=== PATIENT | male | born 1945 | race Caucasian/White ===

== ENCOUNTER 2016-07-21 12:43 | Emergency (ER) | payer MEDICARE, BC ==
[2016-07-21] MEDS ORDERED: TETANUS,DIPHTHERIA,PERTUSSIS 1 EA SYG IM ONE ×2 (13:14→14:25)
--- NOTE | 2016-07-21 13:30 | ED.PDOC ---
History of Present Illness - General Chief Complaint: Syncope/Near Syncope Stated Complaint: syncopal episode/hand injury Time Seen by Provider: 07/21/16 13:11 Source: patient, family Exam Limitations: no limitations - History of Present Illness Initial Comments: Dani Shen 70 y/o male with history of cad,htn stated that he was fixing the skeet shooter with his daughter then hand accidentally got caught by it sustaining wound laceration right hand and after incident went to sit on the chair felt nauseated and noticed by the family that he passed out not breathing eyes rolled up became pale and cyanotic lips then was laid down on the ground and family member poured water on his face which perk him up lasted for about a minute then regained his consciousness back.No disorientation no slurred speech no weakness.He stated that he has heart fluttering was on verapamil but switch to atenolol.Goes to see his nuclear fuels reclamation engineer 2x a year. Timing/Duration: 1-3 hours Severity: moderate Improving Factors: rest Worsening Factors: movement Associated Symptoms: syncope, other - had laceration left hand and syncopal episode Allergies/Adverse Reactions: Allergies NSAIDs Allergy (Verified 07/21/16 13:06) Home Medications: Ambulatory Orders Acetaminophen W/ Codeine [Tylenol W/ CODEINE #3] 1 ea PO Q6HRS PRN #20 Clopidogrel Bisulfate [Plavix] 75 mg PO DAILY 07/21/16 Lovastatin 40 mg PO DAILY 07/21/16 Metoprolol Succinate [Metoprolol Succinate ER] 25 mg PO DAILY 07/21/16 Tamsulosin [Flomax] 0.4 mg PO DAILY 07/21/16 Review of Systems - Review of Systems Constitutional: States: no symptoms reported EENTM: States: no symptoms reported Respiratory: States: no symptoms reported Cardiology: States: other - arrhythmia followed up by nuclear fuels reclamation engineer Gastrointestinal/Abdominal: States: no symptoms reported Genitourinary: States: no symptoms reported Musculoskeletal: States: no symptoms reported Skin: States: see HPI Neurological: States: other - syncope Endocrine: States: no symptoms reported Hematologic/Lymphatic: States: no symptoms reported Past Medical History (General) - Patient Medical History Hx Dementia: No Hx of COPD: No Hx Cardiac Disorders: Yes - stent Hx Pacemaker: No Hx Hypertension: Yes Hx Gastroesophageal Reflux: No Hx Other PMH: Yes - bph,dyslipedemia Surgical History: other - cardiac stent placement - Vaccination History Hx Tetanus, Diphtheria Vaccination: No Hx Influenza Vaccination: No Hx Pneumococcal Vaccination: Yes - Social History Hx Tobacco Use: No Hx Chewing Tobacco Use: No Hx Alcohol Use: No Hx Substance Use: No - Activities of Daily Living Patient Lives Alone: No - family Grooming Ability: Independent Eating (Feeding) Ability: Independent Toileting Ability: Independent Family Medical History - Family History Mother Hx Family Cancer: Yes - lung-brother,mom Physical Exam - Physical Exam General Appearance: Alert, Comfortable, No apparent distress, Other - speech fluent Eye Exam: bilateral normal Ears, Nose, Throat: hearing grossly normal, normal ENT inspection, normal pharynx Neck: non-tender, full range of motion, supple Respiratory: chest non-tender, lungs clear, normal breath sounds, no respiratory distress Cardiovascular/Chest: normal peripheral pulses, regular rate, rhythm, no edema, no gallop, no JVD, no murmur Peripheral Pulses: radial,right: 2+, radial,left: 2+ Gastrointestinal/Abdominal: normal bowel sounds, non tender, soft, no organomegaly, no pulsatile mass Neurologic: no motor/sensory deficits, alert, normal mood/affect, oriented x 3, other - negative pronator drift Skin Exam: normal color, warm/dry, other - laceration right hand Progress - Results/Orders Results/Orders: 07/21/16 13:17 IV Care:Saline Lock per Protoc QSHIFT Laboratory Results WBC 5.2 K/mm3 (4.8-10.8) 07/21/16 13:23 RBC 4.53 M/mm3 (4.70-6.10) L 07/21/16 13:23 Hgb 13.9 gm/dL (14.0-18.0) L 07/21/16 13:23 Hct 40.6 % (42.0-52.0) L 07/21/16 13:23 MCV 89.7 fl (80.0-94.0) 07/21/16 13:23 MCH 30.6 pg (27.0-31.0) 07/21/16 13:23 MCHC 34.3 g/dL (33.0-37.0) 07/21/16 13:23 RDW 13.1 % (11.5-14.5) 07/21/16 13:23 Plt Count 148 K/mm3 (130-400) 07/21/16 13:23 MPV 9.6 fl (7.40-10.4) 07/21/16 13:23 Absolute Neuts (auto) 3.10 K/uL (1.8-6.8) 07/21/16 13:23 Absolute Lymphs (auto) 1.40 K/uL (1.0-3.4) 07/21/16 13:23 Absolute Monos (auto) 0.40 K/uL (0.2-0.8) 07/21/16 13:23 Absolute Eos (auto) 0.10 K/uL (0.0-0.4) 07/21/16: Absolute Basos (auto) 0.10 K/uL (0.0-0.1) 07/21/16 13:23 Neutrophils % 60.9 % (42.0-78.0) 07/21/16 13:23 Lymphocytes % 27.3 % (20.0-50.0) 07/21/16 13:23 Monocytes % 8.3 % (2.0-9.0) 07/21/16 13:23 Eosinophils % 2.3 % (1.0-5.0) 07/21/16 13:23 Basophils % 1.2 % (0.0-2.0) 07/21/16 13:23 PT 12.2 SECONDS (9.4-12.5) 07/21/16 13:23 INR 1.080 07/21/16 13:23 Sodium 137 mmol/L (135-145) 07/21/16 13:23 Potassium 3.7 mmol/L (3.6-5.0) 07/21/16 13:23 Chloride 106 mmol/L (101-111) 07/21/16 13:23 Carbon Dioxide 27 mmol/L (21-31) 07/21/16 13:23 Anion Gap 7.7 (12-18) L 07/21/16 13:23 BUN 15 mg/dL (7-18) 07/21/16 13:23 Creatinine 0.99 mg/dL (0.6-1.3) 07/21/16 13:23 BUN/Creatinine Ratio 15.2 (10-20) 07/21/16 13:23 Random Glucose 191 mg/dL (70-105) H 07/21/16 13:23 Serum Osmolality 279.8 mOsm/L (275-295) 07/21/16 13:23 Calcium 8.9 mg/dL (8.4-10.2) 07/21/16 13:23 Creatine Kinase 64 IU/L (38-174) 07/21/16 13:23 CK-MB (CK-2) 1.4 ng/mL (0.0-4.4) 07/21/16 13:23 CK-MB (CK-2) % Not Reportable 07/21/16 13:23 Troponin I < 0.02 ng/mL (0.01-0.05) 07/21/16 13:23 Vital Signs - 8 hr 07/21/16 07/21/16 07/21/16 12:53 14:43 14:45 Temperature 97.2 F L Pulse Rate [RAC 63 59 L 59 L ] Respiratory 20 18 20 Rate Blood Pressure 126/55 129/69 132/70 [LAC] O2 Sat by Pulse 92 L 97 96 Oximetry 07/21/16 07/21/16 14:47 16:00 Temperature 97.2 F L Pulse Rate [RAC 63 60 ] Respiratory 20 20 Rate Blood Pressure 127/64 128/64 [LAC] O2 Sat by Pulse 95 97 Oximetry 1640H D/W Dr. Wilkerson nuclear fuels reclamation engineer covering for Dr. Mario Oro and stating unable to get old ekg on him and if no chest pain can safely go home since cardiac enzyme negative.Stating his syncope is vasovagal.Discuss this with patient recommended hospital obs here at [facility] but wants to go back to [place] his residence and he'll call his nuclear fuels reclamation engineer 07/23/16 for appointment.Patient had been ambulating talking to his and daughter - EKG/XRAY/CT EKG: Sinus Comments: ekg showing acute mi on printout but patient w/o any chest pain ambulating Procedures - Laceration/Wound Repair Right Hand Wound Length (cm): 3.7 Wound's Depth, Shape: superficial, linear Wound Explored: no foreign body removed Irrigated w/ Saline (cc's): 50 Betadine Prep?: No - hibiclens Anesthesia: 1% Lidocaine Volume Anesthetic (cc's): 7 - metacarpal block Wound Repaired With: sutures Suture Size/Type: 4:0, prolene Number of Sutures: 8 Layer Closure?: No Sterile Dressing Applied?: Yes Splint Applied?: No Departure - Departure Clinical Impression: Vasovagal near-syncope Laceration of right hand without complication, including fingers Qualifiers: Encounter type: initial encounter Qualified Code(s): S61.411A - Laceration without foreign body of right hand, initial encounter Time of Disposition: 16:48 Disposition: Discharge to Home or Self Care Condition: Good Departure Forms: ED Discharge - Pt. Copy, Patient Portal Self Enrollment Instructions: How to Care for a Laceration After Repair, DI for Syncope in Adults (Fainting), DI for Laceration Repair Prescriptions: Acetaminophen W/ Codeine [Tylenol W/ CODEINE #3] 1 ea PO Q6HRS PRN #20 PRN Reason: Pain Home Medications: Ambulatory Orders Acetaminophen W/ Codeine [Tylenol W/ CODEINE #3] 1 ea PO Q6HRS PRN #20 Clopidogrel Bisulfate [Plavix] 75 mg PO DAILY 07/21/16 Lovastatin 40 mg PO DAILY 07/21/16 Metoprolol Succinate [Metoprolol Succinate ER] 25 mg PO DAILY 07/21/16 Tamsulosin [Flomax] 0.4 mg PO DAILY 07/21/16 Additional Instructions: NEED TO GO BACK TO EMERGENCY ROOM IF SYMPTOMS RECURS;FOLLOW UP WITH PREFORMING MACHINE OPERATOR 07/23/2016 call for appointment;REMOVAL OF SUTURES 2016 by primary md in [place]
[2016-07-21] MEDS ORDERED: LIDOCAINE 1% 10 ML VIAL INJ ONE (13:40)
[2016-07-21] MEDS ORDERED: CHLORHEXIDINE GLUCONATE 4 % 15 ML UD TOP ONE (13:41)
[2016-07-21] MEDS ORDERED: NEOMYCIN-BACITRACIN-POLYMYXIN 0.9 GM UD TOP ONE (14:16)
[2016-07-21] MEDS: HYDROcodone 5MG/APAP 325MG 1 EA TAB PO ONE ×2 (16:13→16:15)
[2016-07-21] MEDS ORDERED: traMADol HCL 50 MG TAB PO ONE (16:15)
[2016-07-21 16:23] VITALS: BP 128/64
[2016-07-21 17:10] VITALS: TEMP 97; O2SAT 98
== END 2016-07-21 17:05 | disposition home or self-care (01) ==
LOC: ER 12:43
DX: R55 Syncope and collapse (principal); S61.411A Laceration without foreign body of right hand, initial encounter; I10 Essential (primary) hypertension; E78.5 Hyperlipidemia, unspecified; N40.0 Benign prostatic hyperplasia without lower urinary tract symptoms; Z88.6 Allergy status to analgesic agent; Z79.02 Long term (current) use of antithrombotics/antiplatelets; Z23 Encounter for immunization; Z98.61 Coronary angioplasty status; Z79.899 Other long term (current) drug therapy; W31.9XXA Contact with unspecified machinery, initial encounter; Y92.9 Unspecified place or not applicable